=== PATIENT | female | born 1970 | race Hispanic/Latino ===

== ENCOUNTER 2019-03-30 17:15 | Emergency (ER) | payer SELFPAY ==
[2019-03-30 20:03] LABS: MPV 9.5 fL (7.6-11.3); RBC Red Blood Cell Count 3.56 M/uL (3.86-4.86)
[2019-03-30 20:18] LABS: ALT/SGPT 26 U/L (12-78); AST/SGOT 22 U/L (15-37); Albumin 3.6 g/dL (3.4-5.0); Alkaline Phosphatase 86 U/L (45-117); BUN Blood Urea Nitrogen 7 mg/dL (7-18); Bicarbonate 26 mmol/L (21-32); Bilirubin Total 0.2 mg/dL (0.2-1.0); Glucose Level 92 mg/dL (74-106); Protein, Total 7.6 g/dL (6.4-8.2); Sodium Level 139 mmol/L (136-145)
--- NOTE | 2019-03-30 20:50 | EDPHYS ---
Physician Documentation [facility] Name: Germania Malin Age: 48 yrs Sex: Female : 1970 Arrival Date: 03/30/2019 Time: 17:17 Bed 28 Private MD: ED Physician Chetan Eagle HPI: 03/30 18:45 This 48 yrs old Female presents to ER via Ambulatory with complaints of ma2 Vaginal Bleeding. 18:45 This 48 yrs old Female presents to ER via Ambulatory with complaints of ma2 Vaginal Bleeding. 18:45 The patient presents with vaginal bleeding that is light. Onset: The symptoms/episode ma2 began/occurred gradually. Onset: The symptoms/episode began/occurred 3 month(s) ago. Associated signs and symptoms: Pertinent negatives: diarrhea, dysuria, hematuria, nausea. Severity of symptoms: At their worst the symptoms were mild, in the emergency department the symptoms are unchanged. The patient has not experienced similar symptoms in the past. 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 - Coronavirus screen:: The patient has NOT traveled to [place], [place], or [place] in the past 14 days. The patient has NOT had contact with known/suspected case of Coronavirus?. - Social history:: Patient/guardian denies using alcohol, street drugs, The patient lives with family, Smoking status: Patient denies any tobacco usage or history of. - Family history:: not pertinent. - Ebola Screening: : Patient negative for fever greater than or equal to 101.5 degrees Fahrenheit, and additional compatible Ebola Virus Disease symptoms Patient denies exposure to infectious person Patient denies travel to an Ebola-affected area in the 21 days before illness onset No symptoms or risks identified at this time. ROS: 18:45 Positive for ma2 18:45 Constitutional: Negative for fever, chills, and weight loss, Eyes: Negative for injury, pain, redness, and discharge. 18:45 All other systems are negative. Exam: 18:45 Constitutional: This is a well developed, well nourished patient who is awake, alert, ma2 and in no acute distress. Chest/axilla: Normal chest wall appearance and motion. Nontender with no deformity. No lesions are appreciated. Cardiovascular: Regular rate and rhythm with a normal S1 and S2. No gallops, murmurs, or rubs. Normal PMI, no JVD. No pulse deficits. Respiratory: Lungs have equal breath sounds bilaterally, clear to auscultation and percussion. No rales, rhonchi or wheezes noted. No increased work of breathing, no retractions or nasal flaring. Abdomen/GI: Soft, non-tender, with normal bowel sounds. No distension or tympany. No guarding or rebound. No evidence of tenderness throughout. Skin: Warm, dry with normal turgor. Normal color with no rashes, no lesions, and no evidence of cellulitis. MS/ Extremity: Pulses equal, no cyanosis. Neurovascular intact. Full, normal range of motion. Vital Signs: 17:33 BP 146 / 82; Pulse 77; Resp 19 S; Temp 97.9(O); Pulse Ox 99% on R/A; Weight 72.12 kg ca1 (R); Height 4 ft. 11 in. (149.86 cm) (R); 20:00 BP 108 / 62; Pulse 68; Resp 18; Pulse Ox 100% on R/A; wh 17:33 Body Mass Index 32.11 (72.12 kg, 149.86 cm) ca1 MDM: 18:21 Patient medically screened. ma2 18:45 Differential diagnosis: cervicitis, dysfunctional uterine bleeding, dysmenorrhea. Data ma2 reviewed: vital signs, nurses notes. Counseling: I had a detailed discussion with the patient and/or guardian regarding: the historical points, exam findings, and any diagnostic results supporting the discharge/admit diagnosis, the presence of at least one elevated blood pressure reading (>120/80) during this emergency department visit, the need for outpatient follow up. 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 03/30 18:41 Order name: CBC w/o diff ma2 03/30 18:41 Order name: CMP ma2 03/30 20:05 Order name: CBC without Diff; Complete Time: 20:09 EDMS 03/30 20:18 Order name: Comprehensive Metabolic Panel EDDC Administered Medications: No medications were administered Disposition: 03/30/19 20:09 Discharged to Home. Impression: Abnormal uterine and vaginal bleeding, unspecified. - Condition is Stable. - Discharge Instructions: Abnormal Uterine Bleeding. - Medication Reconciliation Form, Thank You Letter, Antibiotic Education, Prescription Opioid Use form. - Follow up: Urban Harris; When: Tomorrow; Reason: Continuance of care. Signatures: Dispatcher [employer] EDDC Mark Giron Mohammad, MD MD ma2 Baylee Palacios RN RN ca1 Corrections: (The following items were deleted from the chart) 20:35 20:09 03/30/2019 20:09 Discharged to Home. Impression: Abnormal uterine and vaginal wh bleeding, unspecified. Condition is Stable. Discharge Instructions: Abnormal Uterine Bleeding. Forms are Medication Reconciliation Form, Thank You Letter, Antibiotic Education, Prescription Opioid Use. Follow up: Urban Harris; When: Tomorrow; Reason: Continuance of care. ma2
--- NOTE | 2019-03-30 20:50 | ER ---
Nurse's Notes [facility] Name: Germania Malin Age: 48 yrs Sex: Female : 1970 Arrival Date: 03/30/2019 Time: 17:17 Bed 28 Private MD: Diagnosis: Abnormal uterine and vaginal bleeding, unspecified Presentation: 03/30 17:30 Presenting complaint: Child states: She has been having excessive bleeding lately. It ca1 has been going on for 2 weeks and heavy. Normally, she just has her period for over 3 days and with a light to moderate flow. Transition of care: patient was not received from another setting of care. Onset of symptoms was March 30, 2019. Risk Assessment: Do you want to hurt yourself or someone else? Patient reports no desire to harm self or others. Initial Sepsis Screen: Does the patient meet any 2 criteria? No. Patient's initial sepsis screen is negative. Does the patient have a suspected source of infection? No. Patient's initial sepsis screen is negative. Care prior to arrival: None. 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 - Coronavirus screen:: The patient has NOT traveled to [place], [place], or [place] in the past 14 days. The patient has NOT had contact with known/suspected case of Coronavirus?. - Social history:: Patient/guardian denies using alcohol, street drugs, The patient lives with family, Smoking status: Patient denies any tobacco usage or history of. - Family history:: not pertinent. - Ebola Screening: : Patient negative for fever greater than or equal to 101.5 degrees Fahrenheit, and additional compatible Ebola Virus Disease symptoms Patient denies exposure to infectious person Patient denies travel to an Ebola-affected area in the 21 days before illness onset No symptoms or risks identified at this time. Screenin:30 Abuse screen: Denies threats or abuse. Denies injuries from another. Nutritional wh screening: No deficits noted. Tuberculosis screening: No symptoms or risk factors identified. Fall Risk None identified. Assessment: 18:30 General: Appears in no apparent distress. Behavior is calm, cooperative, appropriate wh for age. Pain: Denies pain. Neuro: Level of Consciousness is awake, alert, obeys commands, Oriented to person, place, time, situation, Appropriate for age. Cardiovascular: Heart tones S1 S2. Respiratory: Airway is patent Respiratory effort is even, unlabored, Respiratory pattern is regular, symmetrical, Breath sounds are clear bilaterally. GI: Abdomen is flat, non-distended. : Reports vaginal bleeding that is. EENT: No signs and/or symptoms were reported regarding the EENT system. Derm: Skin is intact, is healthy with good turgor, Skin is pink, warm \T\ dry. normal. Musculoskeletal: Circulation, motion, and sensation intact. 19:30 Reassessment: Patient appears in no apparent distress at this time. No changes from previously documented assessment. Patient and/or family updated on plan of care and expected duration. Pain level reassessed. Patient is alert, oriented x 3, equal unlabored respirations, skin warm/dry/pink. 20:25 Reassessment: Patient appears in no apparent distress at this time. No changes from previously documented assessment. Patient and/or family updated on plan of care and expected duration. Pain level reassessed. Patient is alert, oriented x 3, equal unlabored respirations, skin warm/dry/pink. Vital Signs: 17:33 BP 146 / 82; Pulse 77; Resp 19 S; Temp 97.9(O); Pulse Ox 99% on R/A; Weight 72.12 kg ca1 (R); Height 4 ft. 11 in. (149.86 cm) (R); 20:00 BP 108 / 62; Pulse 68; Resp 18; Pulse Ox 100% on R/A; wh 17:33 Body Mass Index 32.11 (72.12 kg, 149.86 cm) ca1 ED Course: 17:17 Patient arrived in ED. rg4 17:32 Triage completed. ca1 17:33 Arm band placed on right wrist. ca1 18:21 Chetan Eagle MD is Attending Physician. ma2 18:28 Mark Giron is Primary Nurse. wh 18:30 Patient has correct armband on for positive identification. Bed in low position. Call light in reach. Side rails up X 1. Pulse ox on. NIBP on. 19:00 Inserted saline lock: 22 gauge in left antecubital area, using aseptic technique. Blood collected. 20:09 Urban Harris MD is Referral Physician. ma2 20:17 No provider procedures requiring assistance completed. IV discontinued, intact, mg2 bleeding controlled, No redness/swelling at site. Pressure dressing applied. Administered Medications: No medications were administered Outcome: : Discharge ordered by . ma2 20:34 Discharged to home ambulatory, with family. 20:34 Condition: stable 20:34 Discharge instructions given to patient, family, Instructed on discharge instructions, follow up and referral plans. POC Demonstrated understanding of instructions, follow-up care, POC 20:35 Patient left the ED. Signatures: Mely Patrick rg4 Mark Giron Chetan Eagle MD MD ma2 Amadou Ann, RN RN mg2 Baylee Palacios RN RN ca1
[2019-04-01 20:38] VITALS: TEMP 97.9
[2019-04-01 20:40] VITALS: BP 108/62; O2SAT 100
== END 2019-03-30 20:35 | disposition home or self-care (01) ==
LOC: ER 17:15
DX: N93.9 Abnormal uterine and vaginal bleeding, unspecified (principal)
CPT/HCPCS: 36415; 80053; 85027; 99283